=== PATIENT | male | born 1980 | race Caucasian/White ===

== ENCOUNTER 2017-06-28 11:30 | Inpatient (IN) | payer OTHER, MEDICAID ==
--- NOTE | 2017-07-25 10:04 | PDGENHP ---
History and Physical - Chief Complaint Anemia - History of Present Illness This is a 36-year-old male with history of autism born with imperforate anus with history of toxic megacolon who was directly admitted to [facility] for a scheduled colonoscopy by Dr. Pisano. Patient was found to be anemic this summer. He eats a lot of ice. He underwent upper endoscopy a few months ago [facility] that reportedly was normal. Patient's appetite has been poor. He no longer lets his parents clean his bottom after defecation. He has not been complaining of any abdominal pain. He has not been having any nausea or vomiting. His stool has been found to be guaiac-positive. History Information - Allergies/Home Medication List Allergies/Adverse Reactions: No Known Allergies Allergy (Unverified 01/12/10 16:48) Home Medications: Polyethylene Glycol 3350 [Miralax 17 gm (*)] 17 gm PO DAILY PRN 06/29/17 [Last Taken Unknown] I have personally reviewed and updated: family history, medical history, social history, surgical history Past Medical History: Autism, cranial stenosis, anemia, toxic megacolon, congenital imperforate anus, nonfunctioning left kidney status post nephrectomy - Surgical History Additional surgical history: Left nephrectomy, hernia repair, Orchipexy, craniotomy for repair of cranial sutures stenosis - Family History Additional family history: Father with history of coronary disease, paternal uncle with colon cancer - Social History Smoking Status: Never smoked Review of Systems Review of Systems: ROS: 10pt was reviewed & negative except for what was stated in HPI & below Physical Exam Physical Exam: Constitutional: no apparent distress, appears nourished, not in pain Eyes: PERRL, anicteric sclera, EOMI Ears, Nose, Mouth, Throat: moist mucous membranes, hearing normal, ears appear normal, no oral mucosal ulcers Cardiovascular: regular rate and rhythym, no murmur, rub, or gallop, No edema Respiratory: no respiratory distress, no rales or rhonchi, clear to auscultation Gastrointestinal: normoactive bowel sounds, soft, non-tender abdomen, no palpable masses, No guarding, No rebound Genitourinary: no bladder fullness, no bladder tenderness Skin: warm, normal color, no rashes or abrasions, no fluctuance, no induration, No mottled Musculoskeletal: full muscle strength, no muscle tenderness, normal joint ROM, no joint effusions Neurologic: CN II-XII Intact, other (Moves all extremities), No facial droop Psychiatric: interacting appropriately, not anxious, not encephalopathic, thought process linear Lymph, Heme, Immunologic: no cervical LAD, no supraclavicular LAD Lab Data & Imaging Review Laboratory Tests 04/18/17 04/18/17 04/18/17 09:30 09:30 09:45 WBC 4.85 Hgb 10.7 L Hct 35.5 L MCV 74.3 L MCH 22.4 L MCHC 30.1 L RDW 16.2 H Sodium 139 Potassium 4.6 Chloride 107 Carbon Dioxide 21 L Anion Gap 11 BUN 17 Creatinine 1.2 Estimated GFR > 60 Glucose 88 Calcium 9.5 Iron 40.0 L TIBC 487 Iron Saturation 8 L Ferritin 4.7 L Stool Occult Bld Scrn 04/24/17 16:57 WBC Hgb Hct MCV MCH MCHC RDW Sodium Potassium Chloride Carbon Dioxide Anion Gap BUN Creatinine Estimated GFR Glucose Calcium Iron TIBC Iron Saturation Ferritin Stool Occult Bld Scrn POSITIVE H Assessment & Plan Assessment: This is a 36-year-old male with history of severe autism and developmental delay born with a imperforate anus and history of toxic megacolon presenting with: # iron deficiency anemia Plan: -I discussed case with Dr. Pisano from [facility] who plans to take the patient for colonoscopy on 07/26/2017. This procedure will need to be done with sedation. Also to complicate the matter the patient will not take the prep. We have discussed placing a NG tube, but this will likely need sedation as well. At this time Dr. Pisano plans to speak with anesthesia to help determine the best course of action Disposition: Patient will be admitted hospital under observation status
[2017-07-25] MEDS ORDERED: LORazepam 1 MG TAB PO PRN (10:44)
[2017-07-25 11:20] LABS: % IMMATURE GRANULYOCYTES 0.2 % (0.0-1.1); ABSOLUTE IMMATURE GRANULOCYTES 0.01 10^3/uL (0.00-0.10); ADD DIFF? NO; ADD MORPH? YES; ADD SCAN? NO; ATYPICAL LYMPHOCYTE FLAG 10 (0-99); FRAGMENT RBC FLAG 40 (0-99); HEMATOCRIT 25.7 % (40.0-51.0); HEMOGLOBIN 7.1 g/dL (13.7-17.5); LEFT SHIFT FLG 0 (0-99); LIPEMIA HEMOLYSIS FLAG 70 (0-99); MEAN CELL HEMOGLOBIN 18.7 pg (27.9-34.1); PLATELET CLUMPS FLAG 0 (0-99); PLATELET COUNT 284 10^3/uL (150-400); RED BLOOD CELL COUNT 3.79 10^6/uL (4.40-6.38); RED CELL DISTRIBUTION WIDTH 16.7 % (11.5-15.2)
[2017-07-25 11:22] LABS: MEAN CELL HEMOGLOBIN CONCENTR. 27.6 g/dL (32.4-36.7); MEAN CELL VOLUME 67.8 fL (81.5-99.8)
[2017-07-25 11:36] LABS: INR 1.12 (0.83-1.16); PROTIME(PATIENT) 14.3 SEC (12.0-15.0)
[2017-07-25 11:37] LABS: APTT 26.8 SEC (23.0-38.0)
[2017-07-25 11:52] LABS: ALANINE AMINOTRANSFERASE 52 IU/L (21-72); ALBUMIN 3.3 g/dL (3.5-5.0); ALKALINE PHOSPHATASE 86 IU/L (38-126); ANION GAP 9 mEq/L (8-16); ASPARTATE AMINOTRANSFERASE 34 IU/L (17-59); BILIRUBIN,TOTAL 0.3 mg/dL (0.1-1.4); CALCIUM 9.4 mg/dL (8.5-10.4); CARBON DIOXIDE 21 mEq/l (22-31); CHLORIDE 108 mEq/L (97-110); CREATININE 1.2 mg/dL (0.7-1.3); GLOMERULAR FILTRATION RATE > 60; GLUCOSE 84 mg/dL (70-100); SODIUM 138 mEq/L (134-144); TOTAL PROTEIN 5.8 g/dL (6.3-8.2)
[2017-07-25 12:04] LABS: HYPOCHROMIA 1+; MICROCYTES 1+; PLATELET ESTIMATE ADEQUATE (ADEQ)
[2017-07-25] MEDS ORDERED: POLYETHYLENE GLYCOL 3350 17 GM PKT PO PRN (12:55)
[2017-07-25] MEDS: LORazepam 2 MG/ML INJ IVP PRN ×3 (13:30→22:24)
--- NOTE | 2017-07-25 13:59 | PDANEPAE ---
ANE History of Present Illness for NG placement ANE Past Medical History - Cardiovascular History Hx Hypertension: No Hx Arrhythmias: No Hx Chest Pain: No Hx Coronary Artery / Peripheral Vascular Disease: No Hx CHF / Valvular Disease: No Hx Palpitations: No - Pulmonary History Hx COPD: No Hx Asthma/Reactive Airway Disease: No Hx Recent Upper Respiratory Infection: No Hx Oxygen in Use at Home: No Hx Sleep Apnea: No Sleep Apnea Screening Result - Last Documented: Negative Pulmonary History Comment: PNEUMONIA 1999 - Neurologic History Hx Cerebrovascular Accident: No Hx Seizures: No Hx Dementia: No Neurologic History Comment: AUTISM. DEVELOPMENTAL DELAY - Endocrine History Hx Diabetes: No - Renal History Hx Renal Disorders: Yes Renal History Comment: PREV UTI. UA INCONT USES DIAPERS - Liver History Hx Hepatic Disorders: No - Neurological & Psychiatric Hx Hx Neurological and Psychiatric Disorders: No - Cancer History Hx Cancer: No - Congenital Disorder History Hx Congenital Disorders: No - GI History Hx Gastrointestinal Disorders: Yes Gastrointestinal History Comment: GERD. NEUROGENIC BOWEL - Other Health History Other Health History: STRONG,SHY AND NON VERBAL WITH STRANGERS. INTERMITTENT ANEMIA - Chronic Pain History Chronic Pain: Yes (GI) - Surgical History Prior Surgeries: COLONOSCOPY 05/2011. EGD 05/27/2017 AT [facility]. LT NEPHRECTOMY 2009. CRANIECTOMY WITH 2 PLATES FOR STENOSIS. IMPERFORATED ANUS. JUSTIN ING HERNIA. JUSTIN UNDESCENDED TESTICLE ANE Review of Systems Review of Systems: - Exercise capacity Exercise capacity: limited by disability METS (RN): 4 METS ANE Patient History - Allergies Allergies/Adverse Reactions: No Known Allergies Allergy (Unverified 01/12/10 16:48) - Home Medications Home medications: home medication list seen and reviewed Home Medications: Polyethylene Glycol 3350 [Miralax 17 gm (*)] 17 gm PO DAILY PRN 06/29/17 [Last Taken 2 Days Ago ~07/23/17] Multivit-Minerals/Ferrous Fum [Multivitamin Liquid] 9 mg PO DAILY 07/25/17 [ Last Taken Unknown] - NPO status NPO Status: no food or drink >8 hours NPO Since - Liquids (Date): 07/24/17 NPO Since - Liquids (Time): 23:55 NPO Since - Solids (Date): 07/24/17 NPO Since - Solids (Time): 23:55 - Anes Hx Anes Hx: no prior problems - Smoking Hx Smoking Status: Never smoked - Alcohol Use Alcohol Use: None - Family Anes Hx Family Anes Hx: none ANE Labs/Vital Signs - Labs Result Diagrams: 07/25/17 11:10 07/25/17 11:10 - Vital Signs Blood Pressure: 129/70 Heart Rate: 120 Respiratory Rate: 20 O2 Sat (%): 99 Height: 171.45 cm Weight: 80.739 kg ANE Physical Exam - Airway Mallampati Score: Unable to assesss - Pulmonary Pulmonary: no respiratory distress - Cardiovascular Cardiovascular: regular rate and rhythym - ASA Status ASA Status: III ANE Anesthesia Plan Total IV Anesthesia: Yes
[2017-07-25] MEDS ORDERED: MIDAZOLAM 2 MG/2 ML VIAL IVP ONE ×2 (14:14→14:45)
[2017-07-25] MEDS ORDERED: PROPOFOL/EMULSION 500 MG/50 ML BOTTLE IV ONE (14:29)
[2017-07-25] MEDS ORDERED: PEG 3350/NA SULF,BICARB,CL/KCL (GAVILYTE-G) 4000 ML BTL PO ONE ×2 (15:17→22:30)
--- NOTE | 2017-07-25 16:41 | SOAPPROG ---
SOAP Progress Note Assessment/Plan: Assessment: Plan: 07/25/17 16:40 GI note NG tube placed with sedation. Endoscope advanced to mouth to confirm placement. Objective: Vital Signs Temp Pulse Resp BP Pulse Ox 36.6 C 120 H 17 132/88 H 97 07/25/17 15:30 07/25/17 14:09 07/25/17 15:46 07/25/17 16:01 07/25/17 15:46 Laboratory Results 07/25/17 11:10 07/25/17 11:10 07/24/17 07/25/17 07/26/17 05:59 05:59 05:59 Intake Total 900 Balance 900 PT 14.3 SEC (12.0-15.0) 07/25/17 11:10 INR 1.12 (0.83-1.16) 07/25/17 11:10 ICD10 Worksheet Patient Problems: Problems Problem Status Onset Iron deficiency anemia Acute - ICD10 Problem Qualifiers (1) Iron deficiency anemia
[2017-07-25] MEDS ORDERED: LORazepam 2 MG/ML INJ IVP ONE (17:00)
--- NOTE | 2017-07-25 20:00 | GCON ---
[f rep st] CONSULTATION DATE OF CONSULTATION: 07/25/2017 CONSULTING PHYSICIAN: Julio Sorensen DO. REASON FOR CONSULTATION: Iron deficiency anemia/occult blood. CHIEF COMPLAINT: Iron deficiency anemia HISTORY OF PRESENT ILLNESS: The patient is a 36-year-old male with a history of autism, imperforate anus, neurogenic bowel, who presents to [facility] for evaluation of iron deficiency anemia. The patient has had significant iron deficiency anemia for 3-4 months. He underwent an EGD on 05/24, which was unrevealing for cause of anemia. Biopsies were taken for celiac sprue, which were unremarkable. The patient will need NG placement since he will not be able to drink the solution himself. According to the mother, he will also need sedation prior to NG tube insertion. He has had significant constipation in the past requiring manual disimpaction. His family denies any hematochezia or melena. Stool occult was done in his primary care doctor's office. The patient is nonverbal, thus most information is obtained through the chart and family members. I am being asked by Dr. Sorensen to evaluate Abimael for his iron deficiency anemia. PAST MEDICAL HISTORY: 1. Severe autism. 2. Cranial stenosis. 3. Toxic megacolon. 4. Imperforated anus. PAST SURGICAL HISTORY: 1. Left kidney nephrectomy. 2. Hernia repair. 3. Orchiopexy. 4. Craniotomy. ALLERGIES: NKDA. HOME MEDICATIONS: MiraLAX. SOCIAL HISTORY: No history of alcohol or tobacco use. FAMILY HISTORY: Great-grandmother had breast cancer. REVIEW OF SYSTEMS: Unable to obtain due to patient being nonverbal. PHYSICAL EXAM: VITAL SIGNS: Blood pressure 120/70, heart rate 120, temperature 37.3, respirations 20. GENERAL: Awake and alert. HEENT: Anicteric sclerae. Moist mucosa. NECK: No JVD. CARDIAC: Regular rate and rhythm. Positive S1, S2. No gallops appreciated. LUNGS: Clear to auscultation bilaterally. No wheezing, rales or rhonchi. ABDOMEN: Soft, nontender, nondistended. Positive bowel sounds. No guarding. No rebound. EXTREMITIES: No clubbing, cyanosis or edema. NEUROLOGIC: 2 through 12 grossly intact. MUSCULOSKELETAL: No joint deformities noted. SKIN: Normal. LYMPH: No lymphadenopathy. LABORATORY DATA: WBC 6.4, hemoglobin 7.1 hematocrit 25.7, platelets 284. INR 1.12. Sodium 138, potassium 4.0, chloride 108, bicarb 29, BUN 16, creatinine 1.2, glucose 84, AST 34, ALT 54, alkaline phosphate 83. ASSESSMENT AND PLAN: 1. Anemia- iron deficiency. Significant blood loss. At this time, I recommend to proceed with enteroscopy as well as colonoscopy. The risks, benefits, and alternatives of the procedure were discussed in great detail with the family. The risks of infection, bleeding, perforation, and sedation were discussed. Will proceed with this in the morning. We will also place a nasogastric tube for placement of the prep. 2. Severe autism. Thank you very much for this consultation. /[id number]/MODL MTDD
[2017-07-26] MEDS: LORazepam 2 MG/ML INJ IVP PRN ×4 (01:37→21:05)
[2017-07-26] MEDS ORDERED: MAGNESIUM CITRATE 300 ML BOTTLE PO ONE (08:00)
[2017-07-26] MEDS: MULTIVIT/MINERAL/FERR GLUC 15 ML UDL PO SCH (08:27)
[2017-07-26] MEDS ORDERED: MULTIVIT MINERALS PO SCH ×2 (09:00)
[2017-07-26] MEDS ORDERED: FERROUS FUM PO SCH ×2 (09:00)
[2017-07-26] MEDS ORDERED: PROPOFOL/EMULSION 500 MG/50 ML BOTTLE IV ONE (09:47)
[2017-07-26] MEDS ORDERED: MIDAZOLAM 2 MG/2 ML VIAL ONE (09:47)
[2017-07-26] MEDS ORDERED: LR 500 ML IV PRN (10:04)
[2017-07-26] MEDS ORDERED: ONDANSETRON 4 MG/2 ML VIAL IVP PRN (10:04)
[2017-07-26] MEDS ORDERED: NALOXONE HCL 0.4 MG/ML INJ IVP PRN (10:04)
[2017-07-26] MEDS ORDERED: ALBUTEROL 3 ML DEYVIAL IH PRN (10:04)
[2017-07-26] MEDS ORDERED: fentaNYL 100 MCG/2 ML INJ IVP PRN (10:04)
--- NOTE | 2017-07-26 10:04 | PDANEPAE ---
ANE Past Medical History - Cardiovascular History Hx Hypertension: No Hx Arrhythmias: No Hx Chest Pain: No Hx Coronary Artery / Peripheral Vascular Disease: No Hx CHF / Valvular Disease: No Hx Palpitations: No - Pulmonary History Hx COPD: No Hx Asthma/Reactive Airway Disease: No Hx Recent Upper Respiratory Infection: No Hx Oxygen in Use at Home: No Hx Sleep Apnea: Yes Sleep Apnea Screening Result - Last Documented: Negative Pulmonary History Comment: PNEUMONIA 1999 - Neurologic History Hx Cerebrovascular Accident: No Hx Seizures: No Hx Dementia: No Neurologic History Comment: AUTISM. DEVELOPMENTAL DELAY - Endocrine History Hx Diabetes: No - Renal History Hx Renal Disorders: Yes Renal History Comment: PREV UTI. UA INCONT USES DIAPERS - Liver History Hx Hepatic Disorders: No - Neurological & Psychiatric Hx Hx Neurological and Psychiatric Disorders: No - Cancer History Hx Cancer: No - Congenital Disorder History Hx Congenital Disorders: No - GI History Hx Gastrointestinal Disorders: Yes Gastrointestinal History Comment: GERD. NEUROGENIC BOWEL - Other Health History Other Health History: STRONG,SHY AND NON VERBAL WITH STRANGERS. INTERMITTENT ANEMIA - Chronic Pain History Chronic Pain: Yes (GI) - Surgical History Prior Surgeries: COLONOSCOPY 05/2011. EGD 05/27/2017 AT [facility]. LT NEPHRECTOMY 2009. CRANIECTOMY WITH 2 PLATES FOR STENOSIS. IMPERFORATED ANUS. JUSTIN ING HERNIA. JUSTIN UNDESCENDED TESTICLE ANE Review of Systems Review of Systems: - Exercise capacity METS (RN): 4 METS ANE Patient History - Allergies Allergies/Adverse Reactions: No Known Allergies Allergy (Unverified 01/12/10 16:48) - Home Medications Home Medications: Polyethylene Glycol 3350 [Miralax 17 gm (*)] 17 gm PO DAILY PRN 06/29/17 [Last Taken 2 Days Ago ~07/23/17] Multivit-Minerals/Ferrous Fum [Multivitamin Liquid] 9 mg PO DAILY 07/25/17 [ Last Taken Unknown] - NPO status NPO Since - Liquids (Date): 07/26/17 NPO Since - Liquids (Time): 08:00 NPO Since - Solids (Date): 07/26/17 NPO Since - Solids (Time): 00:00 - Smoking Hx Smoking Status: Never smoked - Alcohol Use Alcohol Use: None ANE Labs/Vital Signs - Labs Result Diagrams: 07/25/17 11:10 07/25/17 11:10 - Vital Signs Blood Pressure: 111/58 Heart Rate: 107 Respiratory Rate: 17 O2 Sat (%): 92 Height: 175.26 cm Weight: 81.647 kg ANE Physical Exam - Airway Neck exam: short neck Mallampati Score: Class 3 Mouth exam: poor dentition, small mouth opening - Pulmonary Pulmonary: no respiratory distress, reduced air movement - Cardiovascular Cardiovascular: regular rate and rhythym, no murmur, rub, or gallop - ASA Status ASA Status: IV ANE Anesthesia Plan Anesthesia Plan: MAC
--- NOTE | 2017-07-26 10:32 | POSTANESTH ---
Post Anesthetic Evaluation Cardiovascular Status: Normal, Stable, Similar to Pre-Op Cond Respiratory Status: Normal, Stable, Similar to Pre-op Cond. Level of Consciousness/Mental Status: Mildly Sleepy, Arousable Pain Control: Adequate, Prn Tx Ordered Nausea/Vomiting Control: Adequate, Prn Tx Ordered Complications Possibly Related to Anesthesia: None Noted
--- NOTE | 2017-07-26 10:33 | GIREPORT ---
[facility] Surgical Services - Endoscopy Department Patient Name: Abimael Garza Procedure Date: 07/26/2017 10:21 AM Patient Type: Inpatient Attending MD/ ER Physician: Terrell Pisano MD Procedure: Colonoscopy Indications: Iron deficiency anemia Patient Profile: 36 year old male presents for evaluation of iron deficiency anemia. Providers: Terrell Pisano MD Medicines: Monitored Anesthesia Care Complications: No immediate complications. Estimated blood loss: None. Description of Procedure: After obtaining informed consent, the scope was passed under direct vision. Throughout the proce dure, the patient's blood pressure, pulse, and oxygen saturations were monitored continuously. The Colonoscope with irrigation channel was introduced through the anus with the intention of advanc ing to the cecum. The scope was advanced to the rectum before the procedure was aborted. Medications were given. The colonoscopy was performed without difficulty. The patient tolerated the procedure wel l. The quality of the bowel preparation was poor. Findings: The perianal and digital rectal examinations were normal. Pertinent negatives include no palpabl e rectal lesions. A large amount of stool was found in the rectum, precluding visualization. Estimated Blood Loss: Estimated blood loss: none. Post Op Diagnosis: - Preparation of the colon was poor. - Stool in the rectum. - No specimens collected. Recommendation: - [facility]. - Repeat colonoscopy tomorrow because the bowel preparation was suboptimal. - Will repeat prep. - Thank you for allowing me to participate in the care of your patient. Attending Participation: I personally performed the entire procedure. Terrell Pisano MD Terrell Pisano MD 07/26/2017 10:33:08 AM Number of Addenda: 0 Note Initiated On: 07/26/2017 10:21 AM [email or web address]}
--- NOTE | 2017-07-26 11:40 | ASMTCMCOM ---
CM Note CM Note Notes: Patient admitted with anemia. PMx of severe autism and toxic megacolon. Had colonoscopy today but no results obtained due to poor prep - will repeat tomorrow. Patient lives w parents Hong and Gillian who are his caregivers. I spoke w Hong who said he did not have any case management needs. I offered to help if anything came up. Date Signed: 07/26/2017 11:40 AM Electronically Signed By:Lyn Mo RN
--- NOTE | 2017-07-26 16:15 | HOSPPROG ---
Hospitalist Progress Note Assessment/Plan: 36 yo M with hx of severe autism and imperforate anus at presenting for colonoscopy for iron deficiency anemia # iron deficiency anemia: with plans to w/u further with colonoscopy. Given hx of severe autism this is being done on an IP basis as patient is unable to cooperate with prep and will need NGT and significant nursing assistance to get through this. Attempt at scope made today, but prep was inadequate and will need to be repeated in am. # neurogenic bowel/hx of imperforate anus and severe constipation: intermittently requiring manual disimpaction # severe autism: making evaluation more challenging as above, will return to prior living situation after discharge # dispo: IP status, will need > 48 hours stay for eval/mgmt of above Patient new to my care. Care plan reviewed with Dr. Aguirre and multidisciplinary care team on rounds. Subjective: no significant overnight events Objective: Vital Signs Temp Pulse Resp BP Pulse Ox 37.2 C 116 H 16 130/77 H 96 07/26/17 10:27 07/26/17 11:00 07/26/17 11:00 07/26/17 11:00 07/26/17 11:00 Laboratory Results 07/25/17 11:10 07/25/17 11:10 07/25/17 07/26/17 07/27/17 05:59 05:59 05:59 Intake Total 6300 200 Output Total 1 0 Balance 6299 200 PT 14.3 SEC (12.0-15.0) 07/25/17 11:10 INR 1.12 (0.83-1.16) 07/25/17 11:10 awake, often screaming anicteric op clear rrr no mrg cta to ant exam soft nt no cce warm dry well perfused moves all 4 intermittently agitated ICD10 Worksheet Patient Problems: Problems Problem Status Onset Iron deficiency anemia Acute
[2017-07-26] MEDS ORDERED: PEG 3350/NA SULF,BICARB,CL/KCL (GAVILYTE-G) 4000 ML BTL PO ONE ×2 (16:40→22:00)
--- NOTE | 2017-07-26 16:52 | GIREPORT ---
[facility] Surgical Services - Endoscopy Department Patient Name: Abimael Garza Procedure Date: 07/26/2017 9:50 AM Patient Type: Inpatient Attending MD/ ER Physician: Tererll Pisano MD Procedure: Small bowel enteroscopy Indications: Iron deficiency anemia Patient Profile: 36 year old male presents for evaluaton of iron deficiency anemia. He h ad a prior EGD with no cause found. Providers: Terrell Pisano MD Medicines: Monitored Anesthesia Care Complications: No immediate complications. Estimated blood loss: None. Description of Procedure: After obtaining informed consent, the endoscope was passed. Throughout the procedure, the patien t's blood pressure, pulse, and oxygen saturations were monitored continuously. The Endoscope was introduced through the mouth, and advanced to the proximal jejunum. The scope was passed 40cms p ast the pylorus. After obtaining informed consent, the endoscope was passed under direct vision. Throughout the procedure, the patient's blood pressure, pulse, and oxygen saturations were monit ored continuously.The small bowel enteroscopy was accomplished without difficulty. The patient tolera alexa the procedure well. Findings: The examined esophagus was normal. A small hiatal hernia was present. There was no evidence of significant pathology in the entire examined duodenum. Biopsies for histology were taken with a cold forceps for evaluation of celiac disease. There was no evidence of significant pathology in the entire examined portion of jejunum. Biopsi es for histology were taken with a cold forceps for evaluation of celiac disease. Estimated Blood Loss: Estimated blood loss was minimal. Post Op Diagnosis: - Normal esophagus. - Small hiatal hernia. - Normal examined duodenum. Biopsied. - The examined portion of the jejunum was normal. Biopsied. Recommendation: - Perform a colonoscopy today. - More recommendations on colonoscopy report. - Await pathology results. - Thank you for allowing me to participate in the care of your patient. Attending Participation: I personally performed the entire procedure. Terrell Pisano MD Terrell Pisano MD 07/26/2017 4:51:46 PM Number of Addenda: 0 Note Initiated On: 07/26/2017 9:50 AM [email or web address]
--- NOTE | 2017-07-26 16:56 | GIREPORT ---
[facility] Surgical Services - Endoscopy Department Patient Name: Abimael Garza Procedure Date: 07/26/2017 4:46 PM Patient Type: Inpatient Attending MD/ ER Physician: Terrell Pisano MD Procedure: Small bowel enteroscopy Patient Profile: 36 year old male presents for evaluation of iron deficiency anemia. He had a prior EGD which was unrevealing. Providers: Terrell Pisano MD Medicines: Monitored Anesthesia Care Complications: No immediate complications. Description of Procedure: After obtaining informed consent, the endoscope was passed under direct vision. Throughout the procedure, the patient's blood pressure, pulse, and oxygen saturations were monitored continuous ly. The Colonoscope was introduced through the mouth, and advanced to the proximal jejunum. The scop e was advanced about 500mm from the pylorus to the small bowel bowel Findings: The esophagus was normal. A hiatal hernia was present. There was no evidence of significant pathology in the entire examined duodenum. Biopsies for histology were taken with a cold forceps for evaluation of celiac disease. There was no evidence of significant pathology in the entire examined portion of jejunum. Biopsi es for histology were taken with a cold forceps for evaluation of celiac disease. Estimated Blood Loss: Estimated blood loss was minimal. Post Op Diagnosis: - Normal esophagus. - Hiatal hernia. - Normal examined duodenum. Biopsied. - The examined portion of the jejunum was normal. Biopsied. Recommendation: - Perform a colonoscopy today. - More recommendations on colonoscopy report. - Await pathology results. - Thank you for allowing me to participate in the care of your patient. Terrell Pisano MD Terrell Pisano MD 07/26/2017 4:55:46 PM Number of Addenda: 0 Note Initiated On: 07/26/2017 4:46 PM [email or web address]
[2017-07-26 18:04] LABS: ANION GAP 10 mEq/L (8-16); CALCIUM 8.6 mg/dL (8.5-10.4); CARBON DIOXIDE 26 mEq/l (22-31); CHLORIDE 107 mEq/L (97-110); GLOMERULAR FILTRATION RATE > 60; GLUCOSE 94 mg/dL (70-100); MAGNESIUM 2.1 mg/dL (1.6-2.3); POTASSIUM 3.4 mEq/L (3.5-5.2); SODIUM 143 mEq/L (134-144)
[2017-07-27] MEDS: LORazepam 2 MG/ML INJ IVP PRN (05:36)
[2017-07-27 07:12] LABS: HEMATOCRIT 26.3 % (40.0-51.0); HEMOGLOBIN 7.3 g/dL (13.7-17.5); MEAN CELL HEMOGLOBIN 18.7 pg (27.9-34.1); RED BLOOD CELL COUNT 3.9 10^6/uL (4.40-6.38); RED CELL DISTRIBUTION WIDTH 16.7 % (11.5-15.2)
[2017-07-27 07:24] LABS: MEAN CELL HEMOGLOBIN CONCENTR. 27.8 g/dL (32.4-36.7); MEAN CELL VOLUME 67.4 fL (81.5-99.8)
[2017-07-27 07:30] LABS: ANION GAP 10 mEq/L (8-16); CALCIUM 8.7 mg/dL (8.5-10.4); CARBON DIOXIDE 27 mEq/l (22-31); CHLORIDE 104 mEq/L (97-110); GLOMERULAR FILTRATION RATE > 60; GLUCOSE 77 mg/dL (70-100); POTASSIUM 3.9 mEq/L (3.5-5.2); SODIUM 141 mEq/L (134-144)
[2017-07-27 08:09] VITALS: PULSE 89
[2017-07-27] MEDS ORDERED: MAGNESIUM CITRATE 300 ML BOTTLE PO ONE (09:15)
[2017-07-27] MEDS ORDERED: NS 1,000 ML IV SCH (09:30)
[2017-07-27] MEDS: MULTIVIT/MINERAL/FERR GLUC 15 ML UDL PO SCH (10:01)
--- NOTE | 2017-07-27 11:01 | WOCRNPDOC ---
WOCRN Advanced Assessment Note - Skin Integrity Problem, Advanced Assess Perianal Incont Assoc Dermatitis Dressing Type: Open to Air Integumentary Issue Intervention: Barrier Cream Applied (Calazime) Leisa Wound Tissue: Erythema, Raw, Denuded Skin Integrity Problem Comment: Patient being prepped for colonoscopy and technical staff engineer states he is on his 4th bottle of GoLytely. Perianal skin is red and denuded with patient complaints of pain due to frequent stooling. Current regiment of calazime cream as a barrier to keep stool from directly contacting skin is current best course of action. As soon as procedure is completed, patient will resume normal eating and bowel habits. Wound care will not follow this patient but please reconsult if condition worsens.
--- NOTE | 2017-07-27 13:18 | HOSPPROG ---
Hospitalist Progress Note Assessment/Plan: 36 yo M with hx of severe autism and imperforate anus at presenting for colonoscopy for iron deficiency anemia # iron deficiency anemia: s/p EGD which was unremarkable and plans to w/u further with colonoscopy. Given hx of severe autism this is being done on an IP basis as patient is unable to cooperate with prep and will need NGT and significant nursing assistance to get through this. Attempt at scope made yesterday, but prep was inadequate and will need to be repeated today. # neurogenic bowel/hx of imperforate anus and severe constipation: intermittently requiring manual disimpaction # severe autism: making evaluation more challenging as above, will return to prior living situation after discharge # dispo: IP status, will need > 48 hours stay for eval/mgmt of above Care plan reviewed with Dr. Aguirre and multidisciplinary care team on rounds. Subjective: no acute overnight events, patient awaiting colonoscopy Objective: Vital Signs Temp Pulse Resp BP Pulse Ox 36.0 C 89 18 123/86 H 95 07/27/17 11:23 07/27/17 11:23 07/27/17 11:23 07/27/17 11:23 07/27/17 11:23 Laboratory Results 07/27/17 06:30 07/27/17 06:30 07/26/17 07/27/17 07/28/17 05:59 05:59 05:59 Intake Total 6300 8240 Output Total 1 1950 1100 Balance 6299 6290 -1100 PT 14.3 SEC (12.0-15.0) 07/25/17 11:10 INR 1.12 (0.83-1.16) 07/25/17 11:10 awake alert intermittently agitated rrr no mrg cta b soft nt nd no cce ICD10 Worksheet Patient Problems: Problems Problem Status Onset Iron deficiency anemia Acute
[2017-07-27] MEDS ORDERED: PROPOFOL/EMULSION 500 MG/50 ML BOTTLE IV ONE (14:25)
[2017-07-27] MEDS ORDERED: LIDOCAINE 2% 100 MG/5 ML SYR ONE (14:25)
[2017-07-27] MEDS ORDERED: PROPOFOL 200 MG/20 ML VIAL ONE (14:58)
[2017-07-27] MEDS ORDERED: ACETAMINOPHEN 500 MG TAB PO PRN (15:33)
[2017-07-27] MEDS ORDERED: NALOXONE HCL 0.4 MG/ML INJ IVP PRN (15:33)
[2017-07-27] MEDS ORDERED: HYDROCODONE/APAP 5/325 TAB PO PRN (15:33)
[2017-07-27] MEDS ORDERED: ONDANSETRON 4 MG/2 ML VIAL IVP PRN (15:33)
[2017-07-27] MEDS ORDERED: OXYCODONE/APAP 5/325 TAB PO PRN (15:33)
[2017-07-27] MEDS ORDERED: DEXAMETHASONE 4 MG/ML VIAL IVP PRN (15:33)
[2017-07-27] MEDS ORDERED: fentaNYL 100 MCG/2 ML INJ IVP PRN (15:33)
--- NOTE | 2017-07-27 15:33 | PDANEPAE ---
ANE History of Present Illness colonoscopy for iron def anemia ANE Past Medical History - Cardiovascular History Hx Hypertension: No Hx Arrhythmias: No Hx Chest Pain: No Hx Coronary Artery / Peripheral Vascular Disease: No Hx CHF / Valvular Disease: No Hx Palpitations: No - Pulmonary History Hx COPD: No Hx Asthma/Reactive Airway Disease: No Hx Recent Upper Respiratory Infection: No Hx Oxygen in Use at Home: No Hx Sleep Apnea: No Sleep Apnea Screening Result - Last Documented: Negative Pulmonary History Comment: PNEUMONIA 1999 - Neurologic History Hx Cerebrovascular Accident: No Hx Seizures: No Hx Dementia: No Neurologic History Comment: AUTISM. DEVELOPMENTAL DELAY - Endocrine History Hx Diabetes: No - Renal History Hx Renal Disorders: Yes Renal History Comment: PREV UTI. UA INCONT USES DIAPERS - Liver History Hx Hepatic Disorders: No - Neurological & Psychiatric Hx Hx Neurological and Psychiatric Disorders: No - Cancer History Hx Cancer: No - Congenital Disorder History Hx Congenital Disorders: No - GI History Hx Gastrointestinal Disorders: Yes Gastrointestinal History Comment: GERD. NEUROGENIC BOWEL - Other Health History Other Health History: STRONG,SHY AND NON VERBAL WITH STRANGERS. INTERMITTENT ANEMIA - Chronic Pain History Chronic Pain: Yes (GI) - Surgical History Prior Surgeries: COLONOSCOPY 05/2011. EGD 05/27/2017 AT [facility]. LT NEPHRECTOMY 2009. CRANIECTOMY WITH 2 PLATES FOR STENOSIS. IMPERFORATED ANUS. JUSTIN ING HERNIA. JUSTIN UNDESCENDED TESTICLE ANE Review of Systems Review of systems is: negative Review of Systems: - Exercise capacity Exercise capacity: >=4 METS METS (RN): 4 METS ANE Patient History - Allergies Allergies/Adverse Reactions: No Known Allergies Allergy (Unverified 01/12/10 16:48) - Home Medications Home Medications: Polyethylene Glycol 3350 [Miralax 17 gm (*)] 17 gm PO DAILY PRN 06/29/17 [Last Taken 2 Days Ago ~07/23/17] Multivit-Minerals/Ferrous Fum [Multivitamin Liquid] 9 mg PO DAILY 07/25/17 [ Last Taken Unknown] - NPO status NPO Since - Liquids (Date): 07/27/17 NPO Since - Liquids (Time): 11:00 NPO Since - Solids (Date): 07/26/17 NPO Since - Solids (Time): 00:00 - Smoking Hx Smoking Status: Never smoked - Alcohol Use Alcohol Use: None ANE Labs/Vital Signs - Labs Result Diagrams: 07/27/17 06:30 07/27/17 06:30 - Vital Signs Blood Pressure: 123/86 Heart Rate: 89 Respiratory Rate: 18 O2 Sat (%): 95 Height: 175.26 cm Weight: 81.647 kg ANE Physical Exam - Airway Mallampati Score: Class 2 - Pulmonary Pulmonary: no respiratory distress - Cardiovascular Cardiovascular: regular rate and rhythym - ASA Status ASA Status: III ANE Anesthesia Plan Total IV Anesthesia: Yes Urgent/Emergent Case: Sahras eval completed preop but documented later for safe timely pt care (this pre procedural note entered after procedure due to computer malfunction)
--- NOTE | 2017-07-27 15:33 | POSTANESTH ---
Post Anesthetic Evaluation Cardiovascular Status: Normal, Stable, Similar to Pre-Op Cond Respiratory Status: Normal, Stable, Similar to Pre-op Cond. Level of Consciousness/Mental Status: Can Participate in Eval, Moderately Sleepy Pain Control: Adequate, Prn Tx Ordered Nausea/Vomiting Control: Adequate, Prn Tx Ordered Complications Possibly Related to Anesthesia: None Noted
[2017-07-27] MEDS ORDERED: MIDAZOLAM 2 MG/2 ML VIAL IVP ONE (15:34)
[2017-07-27 15:46] VITALS: RESP 20
[2017-07-27 16:24] VITALS: BP 131/88; O2SAT 98
[2017-07-27 16:27] VITALS: TEMP 97.7
[2017-07-27] MEDS ORDERED: IOPAMIDOL (ISOVUE-300) 100 ML BTL ONE (17:42)
--- NOTE | 2017-07-27 20:02 | PDDCSUM ---
Discharge Summary Discharge Summary: Dates of service 07/25-07/27/17 consultations: GI Procedures performed: egd, colonoscopy, ct enterography Hospital course by problem: # iron deficiency anemia: Given hx of severe autism this is being done on an IP basis as patient is unable to cooperate with prep and will need NGT and significant nursing assistance to get through this. s/p egd/colonoscopy/ct enterography and will f/u with GI for results # neurogenic bowel/hx of imperforate anus and severe constipation: intermittently requiring manual disimpaction # severe autism: making evaluation more challenging as above, will return to prior living situation after discharge dc back to home with caregivers >35 minutes spent in dc more than half in coordination of care
--- NOTE | 2017-07-28 05:02 | GIREPORT ---
[facility] - Endoscopy Department Patient Name: Abimael Garza Procedure Date: 07/27/2017 1:48 PM Patient Type: Inpatient Attending / ER Physician: Terrell Pisano MD Procedure: Colonoscopy Indications: Iron deficiency anemia Patient Profile: 36 year old male presents for evaluation of iron deficiency anemia. Providers: Terrell Pisano MD Medicines: Monitored Anesthesia Care Complications: No immediate complications. Estimated blood loss: None. Description of Procedure: After obtaining informed consent, the scope was passed under direct vision. Throughout the proce dure, the patient's blood pressure, pulse, and oxygen saturations were monitored continuously. The Colonoscope with irrigation channel was introduced through the anus and advanced to the cecum, identified by appendiceal orifice and ileocecal valve. The colonoscopy was performed with diffic ulty due to a tortuous colon. Successful completion of the procedure was aided by applying abdominal pressure. The patient tolerated the procedure well. The quality of the bowel preparation was sti ll poor but the mucosa was aggressively flushed and suctioned. Polyps 6 mm and larger in size could me missed especially in the left colon. The ileocecal valve, appendiceal orifice, and rectum were photographed. Findings: The perianal and digital rectal examinations were normal. Pertinent negatives include no palpabl e rectal lesions. The lumen of the colon (entire examined portion) was significantly dilated consistent with histo ry of megacolon. Estimated Blood Loss: Estimated blood loss: none. Post Op Diagnosis: - Dilated in the entire examined colon. - No specimens collected. Recommendation: - [facility]. - CT enterography. - Thank you for allowing me to participate in the care of your patient. Terrell Pisano MD Terrell Pisano MD 07/28/2017 5:01:34 AM Number of Addenda: 0 Note Initiated On: 07/27/2017 1:48 PM Total Procedure Duration Time 0 hours 36 minutes 48 seconds [email or web address]
== END 2017-07-27 20:09 | disposition home or self-care (01) | DRG 812 ==
LOC: INTOOBSV 07-25 09:26 → F3E 07-25 09:26 → F2N 07-25 16:38 → EDSTATUS 07-26 09:00 → OBSVTOIN 07-26 16:17 → F2N 07-27 16:02
PROVIDERS: ADMIT Internal Medicine Gastroenterology; ATTEND Family Medicine
PROC: 0DB98ZX Excision of Duodenum, Via Natural or Artificial Opening Endoscopic, Diagnostic (ICD-10-PCS; principal; 2017-07-26 09:30)
PROC: 0DBA8ZX Excision of Jejunum, Via Natural or Artificial Opening Endoscopic, Diagnostic (ICD-10-PCS; principal; 2017-07-26 09:30)
PROC: 0DJD8ZZ Inspection of Lower Intestinal Tract, Via Natural or Artificial Opening Endoscopic (ICD-10-PCS; 2017-07-27)
DX: D50.9 Iron deficiency anemia, unspecified (principal); F84.0 Autistic disorder; K59.2 Neurogenic bowel, not elsewhere classified; K59.00 Constipation, unspecified
CPT/HCPCS: G0378; J2001; J2060; J2250; J2704; Q9967